=== PATIENT | female | born 1960 | race American Indian/Alaskan Native ===

== ENCOUNTER 2018-10-19 21:44 | Emergency (ER) | payer SELFPAY ==
--- NOTE | 2018-10-20 06:01 | Emergency Department Report ---
ED General Adult HPI - General Chief complaint: Dyspnea/Respdistress Stated complaint: BLURRED VISON, RAPID BREATHING Source: patient Mode of arrival: Ambulatory Limitations: No Limitations - History of Present Illness Initial comments: Patient is a 58-year-old female with a history of asthma, jqq-zpbzpup-vuzxicfwn diabetes and hypertension who presents to the ED with complaint of persistent shortness of breath, dry cough and wheezing for the last 1 week after she ran out of her albuterol inhaler 6 months ago. Patient states that she was recently diagnosed with ird-ekdvlww-qywkbwgly diabetes and hypertension and has been having persistent blurry vision intermittently stating that these bloody vision is worse at night. 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 Patient states that she has not been to an bearing maker for evaluation. Patient denies chest pain, dizziness, fever, chills, nausea, vomiting, headache, diaphoresis, abdominal pain, neck pain, sore throat, nasal and sinus congestion dysuria and diarrhea. MD Complaint: dyspnea, wheezing, cough, blurry vision -: Gradual, week(s) (1) Location: chest Radiation: non-radiation Severity scale (0 -10): 1 Quality: dull Consistency: intermittent Improves with: none Worsens with: none Associated Symptoms: denies other symptoms, cough, shortness of breath. denies: confusion, chest pain, diaphoresis, fever/chills, headaches, loss of appetite, malaise, nausea/vomiting, rash, seizure, syncope, other Treatments Prior to Arrival: none - Related Data Previous Rx's Medication Instructions Recorded Last Taken Type Albuterol Sulfate [Proventil Hfa] 1 - 2 puff IH Q4HR PRN #1 10/20/18 Unknown Rx hfa.aer.ad methylPREDNISolone [Medrol 4MG 4 mg PO DAILY #21 tab.ds.pk 10/20/18 Unknown Rx DOSEPAK (21 tabs)] ED Review of Systems ROS: Stated complaint: BLURRED VISON, RAPID BREATHING Other details as noted in HPI Constitutional: denies: chills, fever Eyes: denies: eye pain, eye discharge, vision change ENT: denies: ear pain, throat pain Respiratory: cough, shortness of breath, wheezing Cardiovascular: denies: chest pain, palpitations Endocrine: no symptoms reported Gastrointestinal: denies: abdominal pain, nausea, diarrhea Genitourinary: denies: urgency, dysuria, discharge Musculoskeletal: denies: back pain, joint swelling, arthralgia Skin: denies: rash, lesions Neurological: denies: headache, weakness, paresthesias Psychiatric: denies: anxiety, depression Hematological/Lymphatic: denies: easy bleeding, easy bruising ED Past Medical Hx - Past Medical History Previous Medical History?: Yes Hx Hypertension: Yes Hx Asthma: Yes - Surgical History Past Surgical History?: Yes Additional Surgical History: B/L Knee - Social History Smoking Status: Never Smoker Substance Use Type: None - Medications Home Medications: Home Medications Medication Instructions Recorded Confirmed Last Taken Type Albuterol Sulfate [Proventil Hfa] 1 - 2 puff IH Q4HR PRN #1 10/20/18 Unknown Rx hfa.aer.ad methylPREDNISolone [Medrol 4MG 4 mg PO DAILY #21 tab.ds.pk 10/20/18 Unknown Rx DOSEPAK (21 tabs)] ED Physical Exam - General Limitations: No Limitations General appearance: alert, in no apparent distress - Head Head exam: Present: atraumatic, normocephalic, normal inspection - Eye Eye exam: Present: normal appearance, PERRL, EOMI. Absent: scleral icterus, conjunctival injection, nystagmus Pupils: Present: normal accommodation - ENT ENT exam: Present: normal exam, normal orophraynx, mucous membranes moist, TM's normal bilaterally, normal external ear exam - Neck Neck exam: Present: normal inspection, full ROM. Absent: meningismus, lymphadenopathy - Respiratory Respiratory exam: Present: normal lung sounds bilaterally. Absent: respiratory distress, wheezes, rales, rhonchi, chest wall tenderness, accessory muscle use, decreased breath sounds - Cardiovascular Cardiovascular Exam: Present: regular rate, normal rhythm, normal heart sounds. Absent: systolic murmur, diastolic murmur, rubs, gallop - GI/Abdominal GI/Abdominal exam: Present: soft, normal bowel sounds. Absent: tenderness, guarding, rebound, hyperactive bowel sounds, hypoactive bowel sounds, mass - Rectal Rectal exam: Present: deferred - Extremities Exam Extremities exam: Present: normal inspection, full ROM, normal capillary refill - Back Exam Back exam: Present: normal inspection, full ROM. Absent: tenderness, CVA tenderness (R), CVA tenderness (L), muscle spasm, paraspinal tenderness - Neurological Exam Neurological exam: Present: alert, oriented X3, CN II-XII intact, normal gait, reflexes normal - Psychiatric Psychiatric exam: Present: normal affect, normal mood - Skin Skin exam: Present: warm, dry, intact, normal color. Absent: rash ED Course Vital Signs 10/19/18 21:51 Temperature 98.7 F Pulse Rate 67 Respiratory 14 Rate Blood Pressure 197/111 O2 Sat by Pulse 99 Oximetry - Reevaluation(s) Reevaluation #1: 10/20/18 06:06 This is a 58-year-old, thin female with a history of asthma, ijn-etyutoy-eylsfzghv diabetes and hypertension who presents to the ED with shortness of breath after she ran out of her albuterol inhaler over 6 months ago. In the ED, patient is alert and oriented 3 and is in no acute distress and hypertensive in triage. Physical exam is unremarkable, including lung sounds. Patient was discharged home on albuterol inhaler prescription and referred to the [facility] for further evaluation. Patient was also referred to the bearing maker for evaluation of her vision. Patient was advised to return to the ED immediately if symptoms get worse. ED Medical Decision Making - Medical Decision Making This is a 58-year-old, thin female with a history of asthma, ior-kjyfqho-cgaudotky diabetes and hypertension who presents to the ED with shortness of breath after she ran out of her albuterol inhaler over 6 months ago. In the ED, patient is alert and oriented 3 and is in no acute distress and hypertensive in triage. Physical exam is unremarkable, including lung sounds. Patient was discharged home on albuterol inhaler prescription and referred to the [facility] into [facility] for further evaluation. Patient was also referred to the bearing maker for evaluation of her vision. Patient was advised to return to the ED immediately if symptoms get worse. - Differential Diagnosis Dyspnea, Asthma attack; bronchitis Critical care attestation.: If time is entered above; I have spent that time in minutes in the direct care of this critically ill patient, excluding procedure time. ED Disposition Clinical Impression: Acute asthmatic bronchitis, Shortness of breath Disposition: - TO HOME OR SELFCARE Is pt being admited?: No Does the pt Need Aspirin: No Condition: Stable Instructions: Acute Bronchitis (ED), Asthma (ED) Additional Instructions: Took medication with food, drink plenty of fluids and follow-up with your primary care physician in 7-10 days for reevaluation. Return to ED immediately if symptoms get worse. Prescriptions: methylPREDNISolone [Medrol 4MG DOSEPAK (21 tabs)] 4 mg PO DAILY #21 tab.ds.pk Albuterol Sulfate [Proventil Hfa] 1 - 2 puff IH Q4HR PRN #1 hfa.aer.ad PRN Reason: Dyspnea Referrals: [facility] [Outside] - 3-5 Days ALEX NGUYEN MD [Staff Physician] - 3-5 Days Time of Disposition: 05:55 Print Language: AZERI
[2018-10-20 06:57] VITALS: BP 160/80
== END 2018-10-20 06:20 | disposition home or self-care (01) ==
LOC: ED 21:44
DX: J45.909 Unspecified asthma, uncomplicated (principal); I10 Essential (primary) hypertension; E11.9 Type 2 diabetes mellitus without complications; Z98.890 Other specified postprocedural states; Z79.899 Other long term (current) drug therapy